=== PATIENT | female | born 1985 | race Caucasian/White ===

== ENCOUNTER 2019-10-21 16:25 | Outpatient (CLI) | payer OTHER, SELFPAY ==
--- NOTE | ~2019-10-21 | XR_ITS ---
EXAMINATION: XR chest 2V DATE: 10/21/2019 16:49 INDICATION: Cough and congestion. TECHNIQUE: Frontal and lateral views of the chest were obtained. COMPARISON: None. FINDINGS: The chest demonstrates clear lungs without pneumonia, pleural effusion, or pneumothorax. Th e heart size is normal. IMPRESSION: 1. No acute cardiopulmonary disease. Reviewed, dictated and finalized at location A.
[2019-10-21 16:45] LABS: Basophils Absolute Auto 0.05 K/mm3 (0.00-0.10); Basophils Percent Auto 0.4 % (0.0-1.0); Eosinophils Absolute Auto 0.15 K/mm3 (0.02-0.50); Eosinophils Percent Auto 1.2 % (1.0-6.0); Hematocrit 43.9 % (35.0-49.0); Immature Granulocyte Absolute 0.03 K/mm3 (0.00-0.00); Immature Granulocyte Percent A 0.2 % (0.0-0.0); Lymphocytes Absolute Auto 3.33 K/mm3 (1.10-4.50); Lymphocytes Percent Auto 27.7 % (18.0-42.0); Mean Corpuscular HGB Conc 34.2 g/dL (32.0-36.0); Mean Corpuscular Hemoglobin 30.5 pg (27.0-31.0); Mean Corpuscular Volume 89.2 fL (78.0-102.0); Mean Platelet Volume 11.3 fl (9.2-11.8); Monocytes Absolute Auto 0.96 K/mm3 (0.10-0.90); Neutrophils Absolute Auto 7.5 K/mm3 (1.7-7.2); Neutrophils Percent Auto 62.5 % (50.0-70.0); Platelet Count Result 280 K/mm3 (150-420); Red Blood Count 4.92 M/mm3 (4.20-5.40)
[2019-10-21 17:06] LABS: Influenza Control Valid (Valid)
== END 2019-10-21 16:26 | disposition home or self-care (01) ==
LOC: CHSLAB 16:29
PROVIDERS: PCP Internal Medicine; Visit Provider Internal Medicine
DX: R05 Cough (principal); R09.89 Other specified symptoms and signs involving the circulatory and respiratory systems
CPT/HCPCS: 36415; 71046; 85025; 87081; 87804; 87880

== ENCOUNTER 2020-10-04 13:53 | Outpatient (RCR) | payer BC, SELFPAY ==
[2020-10-04 14:01] VITALS: BMI 43.6
[2020-10-04 15:05] VITALS: BMI 43.6
== END 2020-12-20 08:39 | disposition home or self-care (01) ==
LOC: ANHDMC 13:53
PROVIDERS: PCP Internal Medicine; Visit Provider Internal Medicine
DX: E11.9 Type 2 diabetes mellitus without complications (principal); Z71.3 Dietary counseling and surveillance
CPT/HCPCS: 97802

== ENCOUNTER 2022-12-21 07:18 | Outpatient (CLI) | payer BC, SELFPAY ==
--- NOTE | ~2022-12-21 | US_ITS ---
Thyroid ultrasound. Clinical History: Nontoxic goiter Findings: Real-time sonography of the thyroid gland was performed. The right lobe measures 4.7 x 1.7 x 1.3 cm. The left lobe measures 4.3 x 1.8 x 1.0 cm. The isthmus is 4 mm in AP diameter. There is a 6 mm hypoechoic, possibly cystic nodule at the left lower pole. Thyroid parenchyma is mild ly heterogeneous overall. Impression: Heterogeneous thyroid parenchyma. 6 mm hypoechoic, possibly cystic left lower pole thyroid nodule. Given small size and sonographic dickson earance, no further follow-up is required.. Reviewed, dictated and finalized at location . Impression: Heterogeneous thyroid parenchyma. 6 mm hypoechoic, possibly cystic left lower pole thyroid nodule. Given small si ze and sonographic appearance, no further follow-up is required..
[2022-12-21 08:24] LABS: Thyroid Stimulating Hormone 1.71 uIU/mL (0.36-3.74)
== END 2022-12-21 07:19 | disposition home or self-care (01) ==
LOC: CHSIMG 07:20
PROVIDERS: PCP Internal Medicine; Visit Provider Registered Nurse
DX: E04.9 Nontoxic goiter, unspecified (principal)
CPT/HCPCS: 36415; 76536; 84439; 84443

== ENCOUNTER 2023-03-01 08:11 | Outpatient (CLI) | payer BC, SELFPAY ==
[2023-03-01 14:23] LABS: Basophils Percent Auto 0.5 % (0.2-1.2); Eosinophils Absolute Auto 0.1 K/mm3 (0-0.3); Eosinophils Percent Auto 0.8 % (0-4.4); Hematocrit 45.6 % (37.0-47.0); Hemoglobin 14.9 g/dL (12.0-15.0); Immature Granulocyte Absolute 0.02 K/mm3 (0.00-0.031); Immature Granulocyte Percent A 0.2 % (0-0.5); Lymphocytes Absolute Auto 2.85 K/mm3 (0.9-3.2); Lymphocytes Percent Auto 32.6 % (18.3-44.2); Mean Corpuscular HGB Conc 32.7 g/dl (32-36); Mean Corpuscular Hemoglobin 29.6 pg (26-34); Mean Corpuscular Volume 90.5 fl (80-100); Mean Platelet Volume 11.8 fl (7.4-10.4); Monocytes Absolute Auto 0.7 K/mm3 (0.1-0.6); Monocytes Percent Auto 8.5 % (2.6-8.5); Neutrophils Percent Auto 57.4 % (45.5-73.1); Platelet Count Result 278 k/mm3 (150-375); Red Blood Count 5.04 M/mm3 (4.2-5.4); Red Cell Distribution Width 12.5 % (11.5-14.5); White Blood Count 8.7 K/mm3 (4.5-10.0)
[2023-03-01 14:44] LABS: Alanine Aminotransferase 24 U/L (6-35); Albumin Level 4.4 g/dL (3.5-5.1); Alkaline Phosphatase 63 U/L (38-126); Anion Gap 9 mmol/L (8-16); Aspartate Amino Transferase 51 U/L (14-36); Bilirubin,Total 0.4 mg/dL (0.2-1.3); Blood Urea Nitrogen 18 mg/dL (7-17); Calcium 9.7 mg/dL (8.4-10.2); Carbon Dioxide 23 mmol/L (22-30); Chloride 103 mmol/L (98-107); Cholesterol 238 mg/dL (0-200); Estimated Glomerular Filt Rate > 60; Glucose 79 mg/dL (65-110); HDL Direct 29 mg/dL; Potassium 4.1 mmol/L (3.4-5.0); Sodium 135 mmol/L (137-145); Triglycerides 232 mg/dL (<150)
[2023-03-01 14:55] LABS: LDL Cholesterol Direct 148 mg/dL
[2023-03-01 14:58] LABS: Creatinine Urine 86.9 mg/dL
[2023-03-01 15:00] LABS: MALB Creatinine Ratio 35.6 mg/g (0-30); Microalbumin Urine Random 30.9 mg/L (0-16.7)
== END 2023-03-01 08:12 | disposition home or self-care (01) ==
LOC: ANHGOSHLAB 08:12
PROVIDERS: PCP Internal Medicine; Visit Provider Nurse Practitioner
DX: E11.9 Type 2 diabetes mellitus without complications (principal)
CPT/HCPCS: 36415; 80053; 80061; 82043; 83036; 85025

== ENCOUNTER 2023-11-27 08:19 | Outpatient (CLI) | payer BC, SELFPAY ==
[2023-11-27 19:21] LABS: Basophils Percent Auto 0.5 % (0.2-1.2); Eosinophils Percent Auto 0.7 % (0-4.4); Hematocrit 43.7 % (37.0-47.0); Hemoglobin 14.3 g/dL (12.0-15.0); Immature Granulocyte Absolute 0.01 K/mm3 (0.00-0.031); Immature Granulocyte Percent A 0.2 % (0-0.5); Lymphocytes Absolute Auto 1.99 K/mm3 (0.9-3.2); Lymphocytes Percent Auto 32.5 % (18.3-44.2); Mean Corpuscular HGB Conc 32.7 g/dl (32-36); Mean Corpuscular Hemoglobin 29.9 pg (26-34); Mean Corpuscular Volume 91.4 fl (80-100); Mean Platelet Volume 11.8 fl (7.4-10.4); Monocytes Absolute Auto 0.6 K/mm3 (0.1-0.6); Neutrophils Absolute Auto 3.5 K/mm3 (1.3-6.7); Neutrophils Percent Auto 57.1 % (45.5-73.1); Platelet Count Result 236 k/mm3 (150-375); Red Blood Count 4.78 M/mm3 (4.2-5.4); Red Cell Distribution Width 12.3 % (11.5-14.5); White Blood Count 6.1 K/mm3 (4.5-10.0)
[2023-11-27 19:46] LABS: Vitamin D 25 Hydroxy 25.6 ng/mL
[2023-11-27 19:55] LABS: Alanine Aminotransferase 16 U/L (6-35); Albumin Level 4.2 g/dL (3.5-5.1); Alkaline Phosphatase 54 U/L (38-126); Anion Gap 5 mmol/L (4-12); Aspartate Amino Transferase 29 U/L (14-36); Bilirubin,Total 0.5 mg/dL (0.2-1.3); Blood Urea Nitrogen 13 mg/dL (7-17); Calcium 9.1 mg/dL (8.4-10.2); Carbon Dioxide 26 mmol/L (22-30); Chloride 107 mmol/L (98-107); Cholesterol 201 mg/dL (0-200); Estimated Glomerular Filt Rate > 60; Glucose 97 mg/dL (65-110); HDL Direct 35 mg/dL; Potassium 4.4 mmol/L (3.4-5.0); Sodium 138 mmol/L (137-145); Triglycerides 93 mg/dL (<150)
[2023-11-27 20:06] LABS: LDL Cholesterol Direct 137 mg/dL
[2023-11-27 20:27] LABS: Hemoglobin A1C 5.2 % (<5.7)
== END 2023-11-27 08:20 | disposition home or self-care (01) ==
LOC: ANHGOSHLAB 08:20
PROVIDERS: PCP Nurse Practitioner; Visit Provider Nurse Practitioner
DX: E78.5 Hyperlipidemia, unspecified (principal); E55.9 Vitamin D deficiency, unspecified; E11.9 Type 2 diabetes mellitus without complications
CPT/HCPCS: 36415; 80053; 80061; 82306; 83036; 85025

== ENCOUNTER 2024-05-05 07:58 | Outpatient (CLI) | payer BC, SELFPAY ==
[2024-05-26 12:31] VITALS: BMI 33.1
--- NOTE | 2024-05-26 12:31 | P.SLEEP_ITS ---
Sleep Study - Home Unattended Date of Study: 05/05/24 Ordering Provider: Marbella Ratliff NP Interpreting Provider: Antonina Domínguez, DO Home Sleep Study Type: Watch PAT Height: 1.73 m Weight: 98.883 kg Body Mass Index: 33.1 Neck Circumference (inches): 15 Warren: 15 Reason for Sleep Study Trouble falling and staying asleep Sleep History The patient is a 39-year-old female with diabetes and migraines that had a sleep study ordered by her primary care for evaluation of insomnia. The patient admits to having difficulty falling asleep and maintaining sleep. She denies snoring. She does state that she stops breathing while asleep. She admits to choking or gasping while sleeping. She does admit to having trouble breathing while on her back. She does wake up in the morning with headache. 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 She denies nocturnal heartburn. She denies nocturia. If she awakens during the night she has difficulty falling back asleep. She will wake up early without alarm. She denies taking any hypnotics her sedatives. She denies feeling anxious about sleep. She admits to feeling tired or fatigued during the day. She admits to a on refreshing sleep. She denies having the urge to fall asleep during the day. She denies feeling drowsy while driving. She denies sleep paralysis, cataplexy and hypnagogic / hypnopompic hallucinations. She admits to clenching or grinding her teeth while sleeping. She denies kicking or jerking her legs excessively during the night. She denies having a restless feeling in her legs. She goes to bed at 11:00 p.m. on both weekdays and weekends. It takes her 2 hours to fall asleep. She typically gets 6 hours of sleep per night. Her sleep is not restorative even on her days off. She denies taking any plan naps. She denies dream enactment behavior. She denies sleep walking. She consumes 1-2 cups of caffeinated beverage per day. She denies consuming any alcohol or tobacco products. She does not exercise regularly. [facility] Past Medical History Medical History Allergies Diabetes Encounter for gynecological examination (general) (routine) without abnormal findings Encounter to establish care Migraines Morbid obesity Screening for breast cancer Family History Family History Father Diabetes mellitus Hypertension Mother Alcoholism Depression Anxiety Grandparent Diabetes mellitus Social History Social History Smoking status: Former smoker Alcohol intake: never Substance use: never Do You Feel Safe in your Home?: Yes Lack of Transportation: No Lack of Food: Never True Current Housing: I Have Housing Concerned About Future Housing: No Difficulty Paying Gas/Electric Bills: No Difficulty Paying for Meds: No Currently Unemployed: No Education: Associate Degree Difficulty w/ Childcare or Family Care: No Spiritual care concerns: No Medications Home Medications Medication Instructions Recorded Confirmed Type fluticasone propionate 50 2 spray intranasal DAILY 02/28/23 03/13/24 History mcg/actuation nasal spray,suspension lisdexamfetamine 70 mg capsule 70 mg PO DAILY 11/28/23 03/13/24 History (Vyvanse) loratadine 10 mg tablet (Claritin) 10 mg PO DAILY 11/28/23 03/13/24 History eszopiclone 1 mg tablet (Lunesta) 1 mg PO QHS #1 tablet 03/13/24 03/13/24 Rx tirzepatide 15 mg/0.5 mL 15 mg (0.5 mL) subcut WEEKLY #2 mL 03/23/24 Rx subcutaneous pen injector (Mounjaro) Sleep Procedure The sleep study was completed using PromoJamT a technically adequate device with seven channels: peripheral arterial tone, actigraphy, body position, snore, respiratory movement, pulse oximetry, sleep staging, and heart rate. Prior to using the device, the patient received verbal and written instructions for its application and was provided with the help desk phone number for additional telephonic instruction with 24-hour availability of qualified personnel to answer questions. The study was scored using CMS guidelines. Sleep Architecture The total recording time is 8 hrs, 28 min. The total sleep time is 7 hrs, 44 min. Sleep latency is 17 minutes. REM latency is 40 minutes. The patient had 6 episodes of waking. Sleep architecture shows 19.9% deep sleep, 53.2% light sleep, and (as % Total Sleep Time) showed NREM (Light 53.2%; Deep 19.9%), and a 26.8% stage REM. The patient spent 70.0% of total sleep time in the supine position. Sleep efficiency was 91.34. Respiratory Analysis The overall AHI (pAHI 4%:) is 1.4. The central AHI is 0.3. The AHI was 1.2 in NREM and 2.0 in REM sleep. The AHI was 1.9 in Supine and 0.4 in Non-supine sleep. Percent of Lambert Cevallos respirations is 0.0. Oximetry Data The oxygen desaturation index (RHONA 4%:) is 1.4. The mean saturation is 95%, and the lowest saturation is 88%. Time spent with saturation < 88% is 0.1 minutes. Snoring Profile Snoring average intensity is 40 dB. The patient snored above 45 decibels for 5.2 minutes, 1.1% of sleep time. Cardiac Profile The average pulse rate is 76 beats per minutes. The lowest pulse rate is 61 bpm. The highest pulse rate reported is 105 bpm. Atrial fibrillation was not detected. Premature beats occur <0.1 per minute. Assessment and Plan Assessment and Plan (1) Excessive daytime sleepiness: Code(s): G47.19 - Other hypersomnia Status: Acute Assessment and Plan: The patient had an overall AHI of 1.4 with desaturation down to 88%. This is not consistent with sleep disordered breathing. Due to the severity of the patient's symptoms, further evaluation is warranted. I recommend that the patient have a Split study with the use of a hypnotic to ensure we obtain enough sleep data. Data The data obtained during this sleep study is adequate for interpretation. Certification This sleep study has been reviewed by a board certified sleep medicine physician.
== END 2024-05-06 14:51 | disposition home or self-care (01) ==
LOC: ANHCSM 07:59
PROVIDERS: PCP Nurse Practitioner; Visit Provider Nurse Practitioner
DX: G47.19 Other hypersomnia (principal); R06.81 Apnea, not elsewhere classified
CPT/HCPCS: 95800

== ENCOUNTER 2024-12-02 08:05 | Outpatient (CLI) | payer BC, SELFPAY ==
--- OUTSIDE RECORDS SUMMARY | 2024-12-02 08:13 | XMS_ITS | Continuity of Care Document ---
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 No Information No Information Referring Provider: FATUMA Argueta, [address] , [place], [address]. tel:[phone] Family History Family Member Type Diagnosis Age At Onset No Information Payers Payer name Insurance type Covered alliance party ID Authoriza tistephania(s) [facility] [id number] Social History Type Description Quantity Date Captured Comments Sex Female Smoking Status No Information Vital Signs Date / Time: Height Weight BMI Pulse Rate Blood Pressure Temperature Respiratory Rate Body Surface Area Head Circumference BMI percentile Pulse Ox Inhaled Ox 241.00 lbs Chief Complaint And Reason For Visit No Information History Of Present Illness Encounter Date Complaint History Of Prese nt Illness No Information Instructions Date Instruction Additional Infor mation No Information Assessments Type Assessment Date No Information
--- OUTSIDE RECORDS SUMMARY | 2024-12-02 08:13 | XMS_ITS | Patient Health Record ---
Author Organization [facility] As Phase Focus [facility] Address [address] [place] [address] Care Team Providers Care Human Resources Associate Name Role Phone Robbin Banks Unavailable [phone] Migration, Provider Unavailable Unavailable Allergies No Known Allergies Results Component Value Reference Range Notes UDT Reviewed date:02/17/2024 05:22:19 PM Interpretation: Performing Lab: Notes/Report: THC negative 0 - 50 ng/ml Cocaine negative 0 - 300 ng/ml Amphetamine positive 0 - 1000 ng/ml Buprenorphine (BUP) negative 0 - 10 ng/ml Secobarbital (Bar) negative 0 - 300 ng/ml Oxazepam (BZO) negative 0 - 300 ng/ml 5-ujhiybamrq-8,8-frnrrsjb-1, 3-diphenylpyrrolidine (EDDP) negative 0 - 300 ng/ml Methamphetamine (MET) negative 0 - 1000 ng/ml Methylenedioxymethamphetamine (MDMA) negative 0 - 500 ng/ml Morphine (MOP 300/[id number]) negative 0 - 300 ng/ml Methadone (MTD) negative 0 - 300 ng/ml Phencyclidine (PCP) negative 0 - 25 ng/ml Nortriptyline (TCA) negative 0 - 1000 ng/ml Oxycodone negative 0 - 300 ng/ml x negative 0 - 300 ng/ml Reason For Referral No Information Medications Medication SIG (Take, Route, Frequency, Duration) Notes Start Date End Date Status Lisdexamfetamine Dimesylate 70 MG 1 capsule in the morning Oral Once a day for 30 days 10/05/2024 Active MOUNJARO 15 MG/0.5 ML SUBCUTANEOUS PEN INJECTOR *Reorder from [employer] for eRx and Interaction Alerts* 11/18/2023 Active Immunizations Vaccine Route Administration Date Status Comme nts Pfizer [employer]ion[employer] Covid-19 Vac cine 2nd dose Unknown 10/04/2020 Administered Pfizer [employer] Covid-19 Vac cine 2nd dose Unknown 10/25/2020 Administered Pfizer [employer] Covid-19 Vac cine 2nd dose Unknown 07/27/2021 Administered Social History Tobacco Use: Social History Observation Description Date Details (start date - stop date) Former Smoker NA - NA Sex Assigned At : Social History Observation Description Sex Assigned At Female Tobacco Control (Standard) Question Answer Notes Tobacco use: Former smoker Problems Problem Type SNOMED Code ICD Code Onset Dates Problem Status W/U Status Risk Notes Problem Mild recurrent major depression (55717450) Major depressive disorder, recurrent, mild (F33.0) 11/18/19 Active confirmed Problem Generalized anxiety disorder (62355066) Generalized anxiety disorder (F41.1) 11/18/19 Active confirmed Problem Insomnia disorder related to another mental disorder (43591629) Insomnia due to other mental disorder (F51.05) 11/18/19 Active confirmed Problem Attention deficit hyperactivity disorder, combined type (60731719) Attention-deficit hyperactivity disorder, combined type (F90.2) 11/18/19 Active confirmed Problem Insomnia (882121098) Insomnia, unspecified (G47.00) 11/18/19 Active confirmed Problem Binge eating disorder (762905632) Binge eating disorder (F50.81) 11/18/19 24 Active confirmed Vital Signs Heart Rate 105 /min 07/02/2024 Height-cm 172.72 cm 07/02/2024 Blood pressure diastolic 85 mm Hg 07/02/2024 Weight-kg 99.79 kg 07/02/2024 Height 68.00 in 07/02/2024 Blood pressure systolic 123 mm Hg 07/02/2024 Weight 220.0 lbs 07/02/2024 BMI 33.45 kg/m2 07/02/2024 Encounters Encounter Location Date Provider Diagnosis [facility] [address] [place] [address] 02/17/2024 Robbin Banks Binge eating disorde r F50.81 ; Attention-deficit hyperactivity disorder, combined type F90.2 ; Insomnia due to other mental disorder F51.05 ; Generalized anxiety disorder F41.1 and Major depressive disorder, recurrent, mild F33.0 [facility] [address] [facility] [address] [place] [address] 07/02/2024 Robbin Banks Attention-deficit hyperactivity disorder, combined type F90.2 ; Insomnia due to other mental disorder F51.05 ; Generalized anxiety disorder F41.1 ; Major depressive disorder, recurrent, mild F33.0 and Binge eating disorder, mild F50.810 [facility] [address] [facility] [address] [place] [address] 12/14/2023 Provider Migration [facility] [address] [facility] [address] [place] [address] 12/15/2023 Provider Migration [facility], [facility] [address] [address] 02/07/2024 Robbin Banks Attention-deficit hyperactivity disorder, combined type F90.2 [place] [address] [address] 02/10/2024 Robbin Banks Attention-deficit hyperactivity disorder, combined type F90.2 [facility] [address] [facility] [address] [place] [address] 04/08/2024 Robbin Banks Attention-deficit hyperactivity disorder, combined type F90.2 [facility] [address] [address] 05/29/2024 Robbin Banks Attention-deficit hyperactivity disorder, combined type F90.2 [facility] [address] [address] 06/01/2024 Robbin Banks [facility] [address] [facility] [address] [place] [address] 10/05/2024 Robbin Banks Attention-deficit hyperactivity disorder, combined type F90.2 Assessments Encounter Date Diagnosis (ICD Code) Assessment Notes Treatment Notes Treatment Clinical Notes Section Notes 02/07/2024 Attention-defic it hyperactivity disorder, combined type (ICD-10 - F90.2) 02/10/2024 Attention-defic it hyperactivity disorder, combined type (ICD-10 - F90.2) 02/17/2024 Binge eating disorder (ICD-10 - F50.81) 1. ADHD - Patient reports that the current medication, Lisdexamphetamine, is helping with ADHD symptoms but not as effective as it was in the beginning. The patient also mentioned a difference between brand name and generic medication. Plan: - Continue Lisdexamphetamine and consider discussing the possibility of adjusting the dose or trying a different medication during the next visit. - Transfer the prescription to [facility] in [place] as requested by the patient. 2. Binge Eating Disorder - Patient reports that the current medications, Lisdexamphetamine and Mounjaro, are helping with binge eating symptoms. Plan: - Continue with the current medications and monitor the patient's progress during follow-up visits. 3. Depression and Anxiety - Patient reports ongoing counseling sessions every week. Plan: - Encourage the patient to continue counseling and monitor their progress during follow-up visits. 4. Sleep Disturbance - Patient reports not getting enough sleep, which may be partly situational. Plan: - Discuss sleep hygiene and stress management techniques with the patient. - Consider evaluating the patient's sleep patterns and discussing the possibility of adjusting medication timing or adding a sleep aid if necessary during the next visit. Follow-up: Schedule a follow-up appointment in four months to monitor the patient's progress and discuss any necessary adjustments to their treatment plan. 04/08/2024 Attention-defic it hyperactivity disorder, combined type (ICD-10 - F90.2) 05/29/2024 Attention-defic it hyperactivity disorder, combined type (ICD-10 - F90.2) 07/02/2024 Attention-defic it hyperactivity disorder, combined type (ICD-10 - F90.2) cont Lisdexamfetamine 70mg daily 1. ADHD: - Patient is currently on Vyvanse 70 mg (lisdexamfetamine) for ADHD management. - Patient reports that the medication is not as effective as the previous one but still provides some benefits. - No reported side effects or concerns related to sleep or anxiety. Plan: - Continue Vyvanse 70 mg daily. - Monitor patient's response to the medication and adjust the dose if necessary during follow-up visits. 2. Medication Refill: - Patient is due for a refill of Vyvanse 70 mg. - Discussed the process of requesting a refill through the portal ([facility]) or by sending a direct message. Plan: - Refill Vyvanse 70 mg prescription. - Instruct patient to request refills at least one week in advance to avoid delays. 3. Follow-up: Plan: - Schedule a follow-up appointment to monitor the patient's progress and address any concerns or changes in symptoms. - Encourage the patient to reach out if any issues arise between appointments. 10/05/2024 Attention-defic it hyperactivity disorder, combined type (ICD-10 - F90.2) 07/02/2024 Insomnia due to other mental disorder (ICD-10 - F51.05) 1. ADHD: - Patient is currently on Vyvanse 70 mg (lisdexamfetamine) for ADHD management. - Patient reports that the medication is not as effective as the previous one but still provides some benefits. - No reported side effects or concerns related to sleep or anxiety. Plan: - Continue Vyvanse 70 mg daily. - Monitor patient's response to the medication and adjust the dose if necessary during follow-up visits. 2. Medication Refill: - Patient is due for a refill of Vyvanse 70 mg. - Discussed the process of requesting a refill through the portal ([facility]) or by sending a direct message. Plan: - Refill Vyvanse 70 mg prescription. - Instruct patient to request refills at least one week in advance to avoid delays. 3. Follow-up: Plan: - Schedule a follow-up appointment to monitor the patient's progress and address any concerns or changes in symptoms. - Encourage the patient to reach out if any issues arise between appointments. 02/17/2024 Attention-defic it hyperactivity disorder, combined type (ICD-10 - F90.2) cont Lisdexamfetamine 70mg daily 1. ADHD - Patient reports that the current medication, Lisdexamphetamine, is helping with ADHD symptoms but not as effective as it was in the beginning. The patient also mentioned a difference between brand name and generic medication. Plan: - Continue Lisdexamphetamine and consider discussing the possibility of adjusting the dose or trying a different medication during the next visit. - Transfer the prescription to [facility] as requested by the patient. 2. Binge Eating Disorder - Patient reports that the current medications, Lisdexamphetamine and Mounjaro, are helping with binge eating symptoms. Plan: - Continue with the current medications and monitor the patient's progress during follow-up visits. 3. Depression and Anxiety - Patient reports ongoing counseling sessions every week. Plan: - Encourage the patient to continue counseling and monitor their progress during follow-up visits. 4. Sleep Disturbance - Patient reports not getting enough sleep, which may be partly situational. Plan: - Discuss sleep hygiene and stress management techniques with the patient. - Consider evaluating the patient's sleep patterns and discussing the possibility of adjusting medication timing or adding a sleep aid if necessary during the next visit. Follow-up: Schedule a follow-up appointment in four months to monitor the patient's progress and discuss any necessary adjustments to their treatment plan. 07/02/2024 Generalized anxiety disorder (ICD-10 - F41.1) 1. ADHD: - Patient is currently on Vyvanse 70 mg (lisdexamfetamine) for ADHD management. - Patient reports that the medication is not as effective as the previous one but still provides some benefits. - No reported side effects or concerns related to sleep or anxiety. Plan: - Continue Vyvanse 70 mg daily. - Monitor patient's response to the medication and adjust the dose if necessary during follow-up visits. 2. Medication Refill: - Patient is due for a refill of Vyvanse 70 mg. - Discussed the process of requesting a refill through the portal ([facility]) or by sending a direct message. Plan: - Refill Vyvanse 70 mg prescription. - Instruct patient to request refills at least one week in advance to avoid delays. 3. Follow-up: Plan: - Schedule a follow-up appointment to monitor the patient's progress and address any concerns or changes in symptoms. - Encourage the patient to reach out if any issues arise between appointments. 02/17/2024 Insomnia due to other mental disorder (ICD-10 - F51.05) 1. ADHD - Patient reports that the current medication, Lisdexamphetamine, is helping with ADHD symptoms but not as effective as it was in the beginning. The patient also mentioned a difference between brand name and generic medication. Plan: - Continue Lisdexamphetamine and consider discussing the possibility of adjusting the dose or trying a different medication during the next visit. - Transfer the prescription to [facility] as requested by the patient. 2. Binge Eating Disorder - Patient reports that the current medications, Lisdexamphetamine and Mounjaro, are helping with binge eating symptoms. Plan: - Continue with the current medications and monitor the patient's progress during follow-up visits. 3. Depression and Anxiety - Patient reports ongoing counseling sessions every week. Plan: - Encourage the patient to continue counseling and monitor their progress during follow-up visits. 4. Sleep Disturbance - Patient reports not getting enough sleep, which may be partly situational. Plan: - Discuss sleep hygiene and stress management techniques with the patient. - Consider evaluating the patient's sleep patterns and discussing the possibility of adjusting medication timing or adding a sleep aid if necessary during the next visit. Follow-up: Schedule a follow-up appointment in four months to monitor the patient's progress and discuss any necessary adjustments to their treatment plan. 02/17/2024 Generalized anxiety disorder (ICD-10 - F41.1) 1. ADHD - Patient reports that the current medication, Lisdexamphetamine, is helping with ADHD symptoms but not as effective as it was in the beginning. The patient also mentioned a difference between brand name and generic medication. Plan: - Continue Lisdexamphetamine and consider discussing the possibility of adjusting the dose or trying a different medication during the next visit. - Transfer the prescription to [facility] as requested by the patient. 2. Binge Eating Disorder - Patient reports that the current medications, Lisdexamphetamine and Mounjaro, are helping with binge eating symptoms. Plan: - Continue with the current medications and monitor the patient's progress during follow-up visits. 3. Depression and Anxiety - Patient reports ongoing counseling sessions every week. Plan: - Encourage the patient to continue counseling and monitor their progress during follow-up visits. 4. Sleep Disturbance - Patient reports not getting enough sleep, which may be partly situational. Plan: - Discuss sleep hygiene and stress management techniques with the patient. - Consider evaluating the patient's sleep patterns and discussing the possibility of adjusting medication timing or adding a sleep aid if necessary during the next visit. Follow-up: Schedule a follow-up appointment in four months to monitor the patient's progress and discuss any necessary adjustments to their treatment plan. 07/02/2024 Major depressive disorder, recurrent, mild (ICD-10 - F33.0) 1. ADHD: - Patient is currently on Vyvanse 70 mg (lisdexamfetamine) for ADHD management. - Patient reports that the medication is not as effective as the previous one but still provides some benefits. - No reported side effects or concerns related to sleep or anxiety. Plan: - Continue Vyvanse 70 mg daily. - Monitor patient's response to the medication and adjust the dose if necessary during follow-up visits. 2. Medication Refill: - Patient is due for a refill of Vyvanse 70 mg. - Discussed the process of requesting a refill through the portal ([facility]) or by sending a direct message. Plan: - Refill Vyvanse 70 mg prescription. - Instruct patient to request refills at least one week in advance to avoid delays. 3. Follow-up: Plan: - Schedule a follow-up appointment to monitor the patient's progress and address any concerns or changes in symptoms. - Encourage the patient to reach out if any issues arise between appointments. 07/02/2024 Binge eating disorder, mild (ICD-10 - F50.810) 1. ADHD: - Patient is currently on Vyvanse 70 mg (lisdexamfetamine) for ADHD management. - Patient reports that the medication is not as effective as the previous one but still provides some benefits. - No reported side effects or concerns related to sleep or anxiety. Plan: - Continue Vyvanse 70 mg daily. - Monitor patient's response to the medication and adjust the dose if necessary during follow-up visits. 2. Medication Refill: - Patient is due for a refill of Vyvanse 70 mg. - Discussed the process of requesting a refill through the portal ([facility]) or by sending a direct message. Plan: - Refill Vyvanse 70 mg prescription. - Instruct patient to request refills at least one week in advance to avoid delays. 3. Follow-up: Plan: - Schedule a follow-up appointment to monitor the patient's progress and address any concerns or changes in symptoms. - Encourage the patient to reach out if any issues arise between appointments. 02/17/2024 Major depressive disorder, recurrent, mild (ICD-10 - F33.0) 1. ADHD - Patient reports that the current medication, Lisdexamphetamine, is helping with ADHD symptoms but not as effective as it was in the beginning. The patient also mentioned a difference between brand name and generic medication. Plan: - Continue Lisdexamphetamine and consider discussing the possibility of adjusting the dose or trying a different medication during the next visit. - Transfer the prescription to [facility] as requested by the patient. 2. Binge Eating Disorder - Patient reports that the current medications, Lisdexamphetamine and Mounjaro, are helping with binge eating symptoms. Plan: - Continue with the current medications and monitor the patient's progress during follow-up visits. 3. Depression and Anxiety - Patient reports ongoing counseling sessions every week. Plan: - Encourage the patient to continue counseling and monitor their progress during follow-up visits. 4. Sleep Disturbance - Patient reports not getting enough sleep, which may be partly situational. Plan: - Discuss sleep hygiene and stress management techniques with the patient. - Consider evaluating the patient's sleep patterns and discussing the possibility of adjusting medication timing or adding a sleep aid if necessary during the next visit. Follow-up: Schedule a follow-up appointment in four months to monitor the patient's progress and discuss any necessary adjustments to their treatment plan. Plan Of Treatment No Information Insurance Providers Payer Name Payer Address Payer Phone Subscriber Number Group Number Insured Name Patient Relationship to Insured Coverage Start Date Coverage End Date [employer] [address] [place] [phone] [id number] ESTEBAN CRUZ Spouse - patient is the spouse of the insured Medical (General) History Medical History History ICD Code Problems: Attention deficit hyperactivit y disorder, combined type Binge eating disorder Generalized anxiety disorder Insomnia disorder related to another men babatunde disorder Middle insomnia Mild recurrent major depression Moderate recurrent major depression Patient new to provider ,
--- OUTSIDE RECORDS SUMMARY | 2024-12-02 08:13 | XMS_ITS | Patient Health Record ---
Author Organization Formerly [facility] [employer] [place] ([address]) Address [address] [place] [address] Care Team Providers Care Leather Crafter Name Role Phone Gaudencio Marbella Primary Care Provider Unavailabl Bethanie Fuller Unavailable [phone] [facility], Provider Unavailable Unavailab le Allergies No Known Allergies Reason For Referral No Information Medications Medication SIG (Take, Route, Frequency, Duration) Notes Start Date End Date Status Flonase Sensimist 27.5 MCG/SPRAY 2 spray(s) in each nostril once a day Active MOUNJARO 15 mg/0.5 mL as directed subcutaneously once a week 08/21/2023 Active VYVANSE 50 mg 1 cap(s) orally once a day (in the morning) for 30 day(s) 08/21/2023 Active FLONASE SENSIMIST 27.5 mcg/inh 2 spray(s) in each nostril once a day Active Mounjaro 15 MG/0.5 ML DIRECTED SUBCUTANEOUSLY ONCE A WEEK *Please review and pick correct strength-formulati on from [employer] options. If intended option is not shown, discontinue and re-order from [employer]* 08/21/2023 Active Vyvanse 50 MG 1 cap(s) orally once a day (in the morning) for 30 day(s) 08/21/2023 Active Immunizations Vaccine Route Administration Date Status Comme nts DTaP < 7 y/o Unknown 12/01/2012 Administered Portal Inf ormation Influenza Unknown 06/04/2022 Administered Portal Infor mation Social History Tobacco Use: Social History Observation Description Date Details (start date - stop date) Former Smoker NA - NA Smoking Smart Form: Question Answer Notes Are you a: former smoker Problems Problem Type SNOMED Code ICD Code Onset Dates Problem Status W/U Status Risk Notes Problem Chronic rhinitis (01329495) Chronic rhinitis (J31.0) Active confirmed Problem Chronic sinusitis (52678948) Chronic sinusitis, unspecified (J32.9) Active confirmed Problem Hypertrophy of nasal turbinates (72067348) Hypertrophy of nasal turbinates (J34.3) Active confirmed Encounters Encounter Location Date Provider Diagnosis [facility] [address] [address] 01/11/2024 Provider [facility] Hypertrophy of nasal turbinates J34.3 Assessments Encounter Date Diagnosis (ICD Code) Assessment Notes Treatment Notes Treatment Clinical Notes Section Notes 01/11/2024 Hypertrophy of nasal turbinates (ICD-10 - J34.3) Plan Of Treatment Pending Test Test Name Order Date -Immunoglobulins A/G/M, Qn, Ser 08/21/19 24 -Vitamin D, 25-Hydroxy 08/21/2023 -Haemophilus influenzae B IgG 08/21/2023 -Tetanus/Diphtheria Ab 08/21/2023 -Respiratory Allergens w/Total IgE Area 8 08/21/2023 -Pneumococcal Ab (23 Serotype) 4 Insurance Providers Payer Name Payer Address Payer Phone Subscriber Number Group Number Insured Name Patient Relationship to Insured Coverage Start Date Coverage End Date [facility] [address] [place] [address] [id number] Angela Burrows Self - patient is the insured Medical (General) History Medical History History ICD Code ADHD Prediabetic Hospitalization History Reason Date(Month/Year) Childbirth 10/18/2014
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
--- OUTSIDE RECORDS SUMMARY | 2024-12-02 08:13 | XMS_ITS ---
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 * Medical History: Objective: * Vitals: Assessment: Plan: * Treatment: * Billing Information: * Visit Code: * Procedure Codes: * Electronic signature of LE Polo on 12/02/2024 at 08:12 AM CDT Sign off status: Pending * Provider: LE Caputo Date: 0 07/31/2023 Generated for Alice vail/Janie/Eliezer on: 0 12/02/2024 08:12 AM CDT
--- OUTSIDE RECORDS SUMMARY | 2024-12-02 08:13 | XMS_ITS | Clinical Summary ---
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
--- OUTSIDE RECORDS SUMMARY | 2024-12-02 08:13 | XMS_ITS ---
Author Organization [facility] [place] ([address]) Address [address] [place] [address] Care Team Providers Care Svp Programmatic Tv Name Role Phone GaudencioMarbella Primary Care Provider Unavailabl e Bethanie Walton Unavailable [phone] ZZ-Migration, Provider Unavailable Unavailab le REASON FOR VISIT [facility] Encounter Medications Medication SIG (Take, Route, Frequency, Duration) [...] the morning) for 30 day(s) 08/21/2023 Active Encounters Encounter Location Date Provider Diagnosis [facility] - [address] [address] 01/11/2024 Provider ZZ-Naseem Hypertrophy of nasal turbinates J34.3 Assessments Encounter Date Diagnosis (ICD Code) Assessment Notes Treatment Notes Treatment Clinical Notes Section Notes 01/11/2024 Hypertrophy of nasal turbinates (ICD-10 - J34.3) Plan Of Treatment Medication Medication Name Sig Start Date Stop Date Notes Flonase Sensimist 27.5 MCG/SPRAY 2 spray(s) in each nostril once a day Progress Notes * Angela BURROWSDOB:1985 ([age] yo F)Acc No.[id number]:01/11/2024 Patient: Angela HOFFMAN Provider: Andi Gusman :1985 A ge:38 Y S ex:Female Date:01/11/2024 Address:[address] [place], [place] [id number] Pcp:Marbella Ratliff Subjective: * Chief Complaints: * 1 . Multum To Medispan Conversion Encounter. * Medical History: * Medications: T aking Mounjaro 15 MG/0.5 ML SOLUTION DIRECTED SUBCUTANEOUSLY ONCE A WEEK , Notes to Pharmacist: *Please review and pick correct strength-formulation from Medispan options. If intended option is not shown, discontinue and re-order from Quick Search*, Taking Vyvanse 50 MG Capsule 1 cap(s) orally once a day (in the morning) Objective: * Vitals: Assessment: * Assessment: 1. H ypertrophy of nasal turbinates - J34.3 (Primary) Plan: * Treatment: * Billing Information: * Visit Code: * Procedure Codes: * Electronic signature of Ame BE-Migration on 12/02/2024 at 08:13 AM CDT Sign off status: Pending * Provider: Andi Gusman Date: 01/11/2024 Generated for Alice vail/Janie/Kaykayitting on: 12/02/2024 08:13 AM CDT
[2024-12-02 13:48] LABS: Basophils Percent Auto 0.6 % (0.2-1.2); Eosinophils Absolute Auto 0.1 K/mm3 (0-0.3); Eosinophils Percent Auto 0.8 % (0-4.4); Hematocrit 42.9 % (37.0-47.0); Hemoglobin 13.5 g/dL (12.0-15.0); Immature Granulocyte Absolute 0.02 K/mm3 (0.00-0.031); Immature Granulocyte Percent A 0.3 % (0-0.5); Lymphocytes Absolute Auto 2.16 K/mm3 (0.9-3.2); Lymphocytes Percent Auto 30.4 % (18.3-44.2); Mean Corpuscular HGB Conc 31.5 g/dl (32-36); Mean Corpuscular Hemoglobin 29.3 pg (26-34); Mean Corpuscular Volume 93.1 fl (80-100); Mean Platelet Volume 11.8 fl (7.4-10.4); Monocytes Absolute Auto 0.7 K/mm3 (0.1-0.6); Monocytes Percent Auto 9.3 % (2.6-8.5); Neutrophils Absolute Auto 4.2 K/mm3 (1.3-6.7); Neutrophils Percent Auto 58.6 % (45.5-73.1); Platelet Count Result 233 k/mm3 (150-375); Red Blood Count 4.61 M/mm3 (4.2-5.4); Red Cell Distribution Width 12.7 % (11.5-14.5); White Blood Count 7.1 K/mm3 (4.5-10.0)
[2024-12-02 13:59] LABS: Alanine Aminotransferase 35 U/L (6-35); Alkaline Phosphatase 56 U/L (38-126); Anion Gap 8 mmol/L (4-12); Aspartate Amino Transferase 40 U/L (14-36); Bilirubin,Total 0.5 mg/dL (0.2-1.3); Blood Urea Nitrogen 18 mg/dL (7-17); Carbon Dioxide 25 mmol/L (22-30); Chloride 106 mmol/L (98-107); Cholesterol 220 mg/dL (0-200); Estimated Glomerular Filt Rate > 60; Glucose 104 mg/dL (65-110); HDL Direct 49 mg/dL; Potassium 4.5 mmol/L (3.4-5.0); Sodium 139 mmol/L (137-145); Triglycerides 108 mg/dL (<150)
[2024-12-02 14:10] LABS: LDL Cholesterol Direct 127 mg/dL
[2024-12-02 14:20] LABS: Vitamin D 25 Hydroxy 20.4 ng/mL
[2024-12-02 17:56] LABS: Hemoglobin A1C 5.5 % (<5.7)
== END 2024-12-02 08:06 | disposition home or self-care (01) ==
LOC: ANHGOSHLAB 08:07
PROVIDERS: PCP Nurse Practitioner; Visit Provider Nurse Practitioner
DX: E55.9 Vitamin D deficiency, unspecified (principal); E78.5 Hyperlipidemia, unspecified; E11.9 Type 2 diabetes mellitus without complications
CPT/HCPCS: 36415; 80053; 80061; 82306; 83036; 84443; 85025